=== PATIENT | female | born 1955 | race Caucasian/White ===

== ENCOUNTER → 2019-09-16 | Outpatient (CLI) | payer MEDICARE, BC ==
[2019-09-16 13:35] LABS: ALANINE AMINOTRANSFERASE 11 U/L (0-55); ALKALINE PHOSPHATASE 72 U/L (40-136); BILIRUBIN,TOTAL 0.2 MG/DL (0.1-1.0); BUN/CREATININE RATIO 30; CALCIUM 9.1 MG/DL (8.5-10.1); CARBON DIOXIDE 24 MMOL/L (21-32); CHLORIDE 104 MMOL/L (98-107); GFR ESTIMATED > 60; GLUCOSE 156 MG/DL (70-105); POTASSIUM 4.2 MMOL/L (3.6-5.0); SODIUM 141 MMOL/L (135-145); TOTAL PROTEIN 6.4 GM/DL (6.4-8.2)
[2019-09-16 15:22] LABS: TRIGLYCERIDES 216 MG/DL (<150); VLDL CHOLESTEROL 43 MG/DL (5-40)
[2019-09-16 15:27] LABS: CHOLESTEROL 171 MG/DL (< 200); HDL CHOLESTEROL 41 MG/DL (40-60)
== END ==
LOC: LAB FS 09:54
PROVIDERS: ATTEND Family Medicine
DX: E03.9 Hypothyroidism, unspecified (principal); E11.9 Type 2 diabetes mellitus without complications
CPT/HCPCS: 36415; 80053; 80061; 82043; 83036; 84443

== ENCOUNTER 2019-11-29 08:29 | Emergency (ER) | payer MEDICARE, BC ==
[~2019-11-29] VITALS: Ht 165.1 cm; Wt 77.1 kg
[2019-11-29] MEDS ORDERED: FLUORESCEIN (FLUOR-I-STRIPS) 1 MG STRP ONE (08:39)
[2019-11-29] MEDS ORDERED: TETRACAINE 0.5% OPHTH SOLN 4 ML BTL (SINGLE DOSE ONLY) ONE (08:39)
--- NOTE | 2019-11-29 08:43 | ED EENT ---
History of Present Illness General Chief Complaint: Eye Problems Stated Complaint: SOMETHING IN HER EYE Source: patient Exam Limitations: no limitations History of Present Illness Date Seen by Provider: Nov 29, 2019 Time Seen by Provider: 08:43 Initial Comments 63-year-old female feels like there something and lateral portion of her right eye. Patient reports she stepped outside and felt like a bug or something flew into her eye. Patient reports her looked in her eye but does not spinning. She still having some feeling of foreign body in the lateral aspect. It is causing her eyes to water but no vision changes. Allergies and Home Medications Allergies Coded Allergies: No Known Drug Allergies (Unverified , 11/29/19) Home Medications Gentamicin Sulfate 5 Ml Drops, 5 ML OP Q6H Prescribed by: MOMO LOVE on 11/29/19 0901 Patient Home Medication List Home Medication List Reviewed: Yes Review of Systems Review of Systems Constitutional: No chills, No diaphoresis, No fever Eyes: Denies Blurred Vision, Denies Decreased Acuity; Foreign Body Sensation; Denies Shadows Ears: No Symptoms Reported Nose: no symptoms reported Mouth: no symptoms reported Throat: no symptoms reported Respiratory: no symptoms reported Cardiovascular: no symptoms reported Gastrointestinal: no symptoms reported Musculoskeletal: no symptoms reported Skin: no symptoms reported Neurological: No Symptoms Reported Hematologic/Lymphatic: No Symptoms Reported Past Qukbggg-Vbmfaj-Sbfmyq Hx Past Med/Social Hx: Reviewed Nursing Past Med/Soc Hx Physical Exam Vital Signs Vital Signs - First Documented 11/29/19 08:45 Temp 35.8 Pulse 87 Resp 16 B/P (MAP) 198/88 (124) Pulse Ox 97 O2 Delivery Room Air Height, Weight, BMI Height: '" Weight: lbs. oz. kg; BMI Method: General Appearance: WD/WN, no apparent distress Eyes: right eye corneal abrasion; left eye normal inspection; bilateral eye PERRL, bilateral eye EOMI Nose: normal inspection Mouth/Throat: normal mouth inspection Cardiovascular: normal peripheral pulses, regular rate, rhythm Respiratory: no respiratory distress, no accessory muscle use Neurologic/Psychiatric: no motor/sensory deficits, alert, normal mood/affect, oriented x 3 Skin: normal color, warm/dry Procedures/Interventions Eye : Anesthesia (gtts): Tetracaine Progress/Procedure Conclusion Fluorescence exam with black light shows a small corneal abrasion on the lateral aspect of her right eye Progress/Results/Core Measures Results/Orders My Orders Orders - LOVE,MOMO L DO Tetracaine 0.5% Ophth Hillary Sdv (Tetracai (11/29/19 08:45) Fluorescein Strips ([id number]) (11/29/19 08:45) Tetracaine 0.5% Ophth Hillary Sdv (Tetracai (11/29/19 08:39) Fluorescein Strips ([id number]) (11/29/19 08:39) Medications Given in ED Current Medications Medications Dose Ordered Sig/Vasu Route Start Time Stop Time Status Last Admin Dose Admin Fluorescein Sodium 1 mg ONCE ONCE OU 11/29/19 08:45 11/29/19 08:46 DC 11/29/19 08:44 1 MG Tetracaine HCl 4 ml ONCE ONCE OU 11/29/19 08:45 11/29/19 08:46 DC 11/29/19 08:44 4 ML Vital Signs/I&O 11/29/19 11/29/19 08:45 09:00 Temp 35.8 35.6 Pulse 87 86 Resp 16 16 B/P (MAP) 198/88 (124) 149/79 (124) Pulse Ox 97 97 O2 Delivery Room Air Departure Impression Primary Impression: Corneal abrasion Qualified Codes: S05.01XA - Injury of conjunctiva and corneal abrasion without foreign body, right eye, initial encounter Disposition: 01 HOME, SELF-CARE Condition: Stable Departure-Patient Inst. Referrals: SANDEEP JUAREZ MD (PCP/Family) Primary Care Physician Patient Instructions: Corneal Abrasion (DC) Add. Discharge Instructions: Follow-up with your carton forming machine adjuster next week for recheck All discharge instructions reviewed with patient and/or family. Voiced understanding. Scripts Gentamicin Sulfate (Gentamicin Sulfate) 5 Ml Drops 5 ML OP Q6H for 5 Days, #1 EA Prov: LOVE,MOMO L DO 11/29/19 LOVE,MOMO L DO Nov 29, 2019 08:43
[2019-11-29] MEDS ORDERED: FLUORESCEIN (FLUOR-I-STRIPS) 1 MG STRP OU ONE (08:45)
[2019-11-29] MEDS ORDERED: TETRACAINE 0.5% OPHTH SOLN 4 ML BTL (SINGLE DOSE ONLY) OU ONE (08:45)
[2019-11-29 09:00] VITALS: BP 149/79
[2019-11-29] MEDS ORDERED: GENT5DRO30 OP (09:01)
[2019-11-29] MEDS ORDERED: METF-397 (10:35)
[2019-11-29] MEDS ORDERED: LEVO125T (10:35)
[2019-11-29] MEDS ORDERED: HYDR25TA4 (10:35)
[2019-11-29] MEDS ORDERED: CARV12.53 (10:35)
[2019-11-29] MEDS ORDERED: LEVO150T (10:35)
[2019-11-29] MEDS ORDERED: ESTR1TAB24 (10:35)
[2019-11-29] MEDS ORDERED: CARV25TA (10:35)
[2019-11-29] MEDS ORDERED: GLIP5TAB13 (10:35)
[2019-11-29] MEDS ORDERED: BUPR-168 (10:48)
[2019-11-29] MEDS ORDERED: ATOR20TA66 (10:48)
[2019-11-29] MEDS ORDERED: LOSA100T57 (10:48)
[2019-11-29] MEDS ORDERED: MELO15TA39 (10:48)
--- OUTSIDE RECORDS SUMMARY | 2019-11-29 17:14 | XMS REPORT | Continuity of Care Document ---
Author Organization Unknown Address Unknown Phone Unavailable Allergies Active Description Code Type Severity Reaction Onset Reported/Identified Relationship to Patient Clinical Status Yes No Known Drug Allergies [id number] Drug Allergy Unknown N/A 11/29/2019 Medications There is no data. Problems Date Dx Coded Attending Type Code Diagnosis Diagnosed By 09/17/2019 SANDEEP JUAREZ MD Ot E11 .9 TYPE 2 DIABETES MELLITUS WITHOUT COMPLIC 09/17/2019 SANDEEP JUAREZ MD, Ot E11 .9 TYPE 2 DIABETES MELLITUS WITHOUT COMPLIC 10/14/2019 SANDEEP JUAREZ MD Ot E03 .9 HYPOTHYROIDISM, UNSPECIFIED 10/14/2019 SANDEEP JUAREZ MD, Ot E11 .9 TYPE 2 DIABETES MELLITUS WITHOUT COMPLIC Procedures There is no data. Results There is no data. Encounters ACCT No. Visit Date/Time Discharge Status Pt. Type Provider Facility Loc./Unit Complaint [id number] 11/29/2019 08:30:00 020 09:00:00 DIS Emergency LOVE MOMO RAMIREZ [facility] ER FS SOMETHING IN HER EYE [id number] 09/16/2019 09:54:00 23:59:59 CLS Outpatient SANDEEP JUAREZ MD [facility] LAB FS DIABETES MELLITUS TYPE 2,ACQUIRED HYPOTHYROIDISM,
== END 2019-11-29 09:00 | disposition home or self-care (01) ==
LOC: EDUNIT# 08:29 → ER FS 08:30
DX: S05.01XA Injury of conjunctiva and corneal abrasion without foreign body, right eye, initial encounter (principal); X58.XXXA Exposure to other specified factors, initial encounter
CPT/HCPCS: 99282

== ENCOUNTER → 2019-12-02 | Outpatient (CLI) | payer MEDICARE, BC ==
[~2019-12-02] MED LIST: ATOR20TA66; BUPR-168; CARV12.53; CARV25TA; ESTR1TAB24; GENT5DRO30 OP; GLIP5TAB13; HYDR25TA4; LEVO125T; LEVO150T; LOSA100T57; MELO15TA39; METF-397
== END ==
LOC: LAB FS 12:04
PROVIDERS: ATTEND Family Medicine
DX: E03.9 Hypothyroidism, unspecified (principal)
CPT/HCPCS: 36415; 84443

== ENCOUNTER → 2020-03-16 | Outpatient (CLI) | payer MEDICARE, BC ==
[2020-03-16 10:19] LABS: BILIRUBIN,TOTAL 0.2 MG/DL (0.1-1.0); CALCIUM 8.9 MG/DL (8.5-10.1); CREATININE SERUM 0.99 MG/DL (0.60-1.30); TOTAL PROTEIN 6.4 GM/DL (6.4-8.2)
[2020-03-16 10:20] LABS: ALBUMIN 4.1 GM/DL (3.2-4.5)
[2020-03-16 11:06] LABS: HEMATOCRIT 37 % (35-52); HEMOGLOBIN 11.9 G/DL (11.5-16.0); MEAN CORPUSCULAR HEMOGLOBIN 28 PG (25-34); MEAN CORPUSCULAR VOLUME 86 FL (80-99); WHITE BLOOD COUNT 7.3 10^3/uL (4.3-11.0)
[2020-03-16 11:07] LABS: BASOPHILS % (AUTO) 1 % (0-10); EOSINOPHILS % (AUTO) 3 % (0-10); LYMPHOCYTES # (AUTO) 2.8 X 10^3 (1.0-4.0); LYMPHOCYTES % (AUTO) 38 % (12-44); MEAN CORPUSCULAR HGB CONC 33 G/DL (32-36); MEAN PLATELET VOLUME 10.3 FL (7.4-10.4); MONOCYTES # (AUTO) 0.4 X 10^3 (0.0-1.0); MONOCYTES % (AUTO) 6 % (0-12); NEUTROPHILS # (AUTO) 3.7 X 10^3 (1.8-7.8); NEUTROPHILS % (AUTO) 52 % (42-75); PLATELET COUNT 285 10^3/uL (130-400)
[2020-03-16 11:08] LABS: BASOPHILS # (AUTO) 0.1 10^3/uL (0.0-0.1); EOSINOPHILS # (AUTO) 0.3 10^3/uL (0.0-0.3)
== END ==
LOC: LAB FS 08:50
PROVIDERS: ATTEND Family Medicine
DX: E11.9 Type 2 diabetes mellitus without complications (principal); I10 Essential (primary) hypertension
CPT/HCPCS: 36415; 80053; 80061; 83036; 85025

== ENCOUNTER → 2020-12-01 | Outpatient (CLI) | payer MEDICARE, BC ==
[2020-12-01 10:58] LABS: BILIRUBIN,TOTAL 0.2 MG/DL (0.1-1.0); CALCIUM 9.2 MG/DL (8.5-10.1); CREATININE SERUM 1.12 MG/DL (0.60-1.30); POTASSIUM 4.2 MMOL/L (3.6-5.0)
[2020-12-01 10:59] LABS: TOTAL PROTEIN 6.7 GM/DL (6.4-8.2)
[2020-12-01 11:26] LABS: ALBUMIN 3.9 GM/DL (3.2-4.5)
== END ==
LOC: LAB FS 09:24
PROVIDERS: ATTEND Family Medicine
DX: E11.9 Type 2 diabetes mellitus without complications (principal); I10 Essential (primary) hypertension; E03.9 Hypothyroidism, unspecified
CPT/HCPCS: 36415; 80053; 80061; 83036; 84443

== ENCOUNTER 2021-01-11 05:42 | Outpatient (CLI) | payer MEDICARE, BC ==
[~2021-01-11] VITALS: Ht 165.1 cm; Wt 77.1 kg
== END 2021-01-12 08:18 | disposition home or self-care (01) ==
LOC: PREOP 05:42
PROVIDERS: ATTEND Surgery
DX: Z01.818 Encounter for other preprocedural examination (principal)

== ENCOUNTER 2021-01-18 09:17 | Day surgery (SDC) | payer MEDICARE, BC ==
[~2021-01-18] VITALS: Ht 165.1 cm; Wt 77.1 kg
--- OUTSIDE RECORDS SUMMARY | 2021-01-18 09:21 | XMS REPORT | Clinical Summary ---
Demographics Preferred Language Unknown Marital Status Unknown Spiritism Affiliation Unknown Race Unknown Ethnic Group Unknown Author Author [facility] Organization [facility] Address Unknown Phone Unavailable Care Team Providers Care Personal Driver Name Role Phone PCP Unavailable Allergies Not on File Medications Not on file Active Problems Not on file Social History Date Tobacco Use Types Packs/Day Years Used Never Assessed Sex Assigned at Date Recorded Not on file Last Filed Vital Signs Not on file Plan of Treatment Not on file Results Not on filefrom Last 3 Months
[2021-01-18] MEDS ORDERED: LACTATED RINGERS 1,000 ML IV STA (09:22)
[2021-01-18 09:25] VITALS: BP 159/87
[2021-01-18] MEDS ORDERED: LACTATED RINGERS 1,000 ML IV ONE (09:27)
--- NOTE | 2021-01-18 10:05 | Progress Note-Pre Operative ---
Pre-Operative Progress Note H&P Reviewed The H&P was reviewed, patient examined and no changes noted. Time Seen by Provider: 10:02 Date H&P Reviewed: Jan 18, 2021 Time H&P Reviewed: 10:02 Pre-Operative Diagnosis: Hx of polyps JIM HOFFMAN DO Jan 18, 2021 10:05
[2021-01-18] MEDS ORDERED: PROPOFOL INJECTION 50 ML IV ONE (11:03)
--- NOTE | 2021-01-18 11:31 | Anesthesia-General Post-Op ---
MAC Patient Condition Mental Status/LOC: Same as Preop Cardiovascular: Satisfactory Nausea/Vomiting: Absent Respiratory: Satisfactory Pain: Controlled Complications: Absent Post Op Complications Complications None Follow Up Care/Instructions Patient Instructions None needed. Anesthesiology Discharge Order Discharge Order Patient is doing well, no complaints, stable vital signs, no apparent adverse anesthesia problems. No complications reported per nursing. DANG GILLIS CRNA Jan 18, 2021 11:31
--- NOTE | 2021-01-18 11:33 | Progress Note-Post Operative ---
Post-Operative Progess Note Surgeon (s)/Sales Team Manager (s) Surgeon JIM HOFFMAN DO Sales Team Manager: RHONDA RubioII Pre-Operative Diagnosis Hx of polyps Post-Operative Diagnosis polyps int hemorrhoids Procedure & Operative Findings Date of Procedure 01/18/21 Procedure Performed/Findings Colonoscopy with cold bx PROCEDURE NOTE: After informed consent was obtained, the patient was brought to the endoscopy suite, placed in bed in left lateral decubitus position. She was administered IV sedation by the CUTTING PRESSMAN who then monitored her vitals the entire time, heart rate, blood pressure and pulse ox and the scope was inserted, pushed all the way to about 130 cm and pushed into the cecum, took a picture of appendiceal orifice and noted the ileo-cecal valve. Then slowly withdrew the scope insufflating to look circumferentially at the garcia starting in the cecum, up the ascending colon to the hepatic flexure, then down the transverse colon to the splenic flexure. Into the descending colon and down into the sigmoid; where I saw a small polyp and elected to do a cold biopsy of it. Pulled into the rectal vault and saw another small polyp; cold biopsy, two bites to completely removed it. Finally retroflexed the scope and took a picture of the internal hemorrhoids. The patient tolerated the procedure. She was recovered in endoscopy suite. Anesthesia Type IV sedation by CUTTING PRESSMAN Estimated Blood Loss Estimated blood loss (mL): scant Specimens/Packing Specimens Removed sigmoid polyp rectal polyp JIM HOFFMAN DO Jan 18, 2021 11:33
--- NOTE | 2021-01-18 11:34 | Endoscopy Discharge Instruct ---
Endo Procedure/Findings Findings 1.: Polyp 2.: Internal Hemorrhoids Discharge Instructions - Activity: You might feel a little sleepy until tomorrow. This is due to the medicine you received to relax you. Until tomorrow, you should: NOT drive a car, operate machinery or power tools. NOT drink any alcoholic beverages. NOT make any important decisions or sign importortant papers. Do not return to work until tomorrow, unless otherwise instructed. Resume previous activities tomorrow. Diet: Start by taking liquids. If you tolerate liquids, advance to solid food. 1.: Colonscopy in 5 years Notify Physician - If you experience excessive bleeding, unusual abdominal pain, fever, or chest pain, contact your doctor immediately. JIM HOFFMAN DO Jan 18, 2021 11:34
[2021-01-18 11:35] VITALS: BP 114/55
[2021-01-18 11:40] VITALS: BP 102/55
[2021-01-18 12:10] VITALS: BP 123/72
[2021-01-18 12:17] VITALS: BP 123/72
== END 2021-01-18 12:17 | disposition home or self-care (01) ==
LOC: ENDO 09:17
PROVIDERS: ATTEND Surgery
DX: Z12.11 Encounter for screening for malignant neoplasm of colon (principal); K64.8 Other hemorrhoids; K63.5 Polyp of colon; E11.9 Type 2 diabetes mellitus without complications; I10 Essential (primary) hypertension; E78.00 Pure hypercholesterolemia, unspecified; E05.00 Thyrotoxicosis with diffuse goiter without thyrotoxic crisis or storm; Z79.890 Hormone replacement therapy; Z79.899 Other long term (current) drug therapy; Z79.82 Long term (current) use of aspirin; Z79.84 Long term (current) use of oral hypoglycemic drugs; Z91.040 Latex allergy status; Z90.49 Acquired absence of other specified parts of digestive tract
CPT/HCPCS: 88305

== ENCOUNTER → 2021-06-21 | Outpatient (CLI) | payer MEDICARE, BC ==
[2021-06-21 09:56] LABS: ALBUMIN 4.1 GM/DL (3.2-4.5); BILIRUBIN,TOTAL 0.2 MG/DL (0.1-1.0); CALCIUM 9.1 MG/DL (8.5-10.1); CREATININE SERUM 1.22 MG/DL (0.60-1.30); POTASSIUM 4.4 MMOL/L (3.6-5.0); TOTAL PROTEIN 6.9 GM/DL (6.4-8.2)
== END ==
LOC: LAB FS 09:18
PROVIDERS: ATTEND Family Medicine
DX: E11.9 Type 2 diabetes mellitus without complications (principal); E03.9 Hypothyroidism, unspecified
CPT/HCPCS: 36415; 80053; 80061; 82043; 83036; 84443

== ENCOUNTER → 2021-12-29 | Outpatient (CLI) | payer MEDICARE, BC ==
[2021-12-29 10:41] LABS: CREATININE SERUM 1.17 MG/DL (0.60-1.30); POTASSIUM 4.5 MMOL/L (3.6-5.0)
[2021-12-29 10:42] LABS: ALBUMIN 3.9 GM/DL (3.2-4.5); BILIRUBIN,TOTAL 0.2 MG/DL (0.1-1.0); CALCIUM 9.5 MG/DL (8.5-10.1); TOTAL PROTEIN 6.6 GM/DL (6.4-8.2)
== END ==
LOC: LAB FS 08:22
PROVIDERS: ATTEND Family Medicine
DX: F32.9 Major depressive disorder, single episode, unspecified (principal); M25.559 Pain in unspecified hip; E03.9 Hypothyroidism, unspecified; E11.9 Type 2 diabetes mellitus without complications; I10 Essential (primary) hypertension
CPT/HCPCS: 36415; 80053; 80061; 83036; 84443

== ENCOUNTER → 2022-01-04 | Outpatient (CLI) | payer MEDICARE, BC | LOC: CANPRECLI → LABNPT 15:41 | PROVIDERS: ATTEND Family Medicine | DX: Z01.89 Encounter for other specified special examinations (principal) ==